=== PATIENT | female | born 1995 | race African-American/Black ===

== ENCOUNTER 2017-05-24 13:15 | Emergency (ER) | payer MEDICAID, OTHER ==
[~2017-05-24] VITALS: Ht 162.6 cm; Wt 67.0 kg
[2017-05-24 13:35] VITALS: BP 112/73
== END 2017-05-24 18:31 | disposition home or self-care (01) ==
LOC: ER 14:36
DX: N75.1 Abscess of Bartholin's gland (principal)
CPT/HCPCS: 81025; 99283